=== PATIENT | female | born 1990 | race Caucasian/White ===

== ENCOUNTER 2019-10-14 14:34 | Emergency (ER) | payer OTHER ==
[~2019-10-14] VITALS: Ht 154.9 cm; Wt 81.7 kg
[~2019-10-14 14:34] MED LIST: ACYCLOVIR 200200 MG PO; BENADRYL ALLE12.5 M1 PO; CALAMINE MEDIC TP; ELOCON15 G1 TP; IBUPROFEN 800800 MG PO; K-DUR10 MEQ PO; KEFLEX500 MG PO; MEDROLDOSEPACK PO; NAPROSYN500 MG PO; NOHOMEMEDICATIONS; PHENERGAN 25 MG25 M1 PO; PHENERGAN25 M2 RC; PREDNISONE 20 M20 M1 PO; ROBAXIN 750 MG750 MG PO; ULTRAM 50MG TAB50 MG PO; ZOFRAN 4 MG ORAL4 M1 DIS
[2019-10-14 15:35] LABS: ABSOLUTE BASOPHILS 0.1 thou/uL (0.0-0.2); ABSOLUTE EOSINOPHILS 0.1 thou/uL (0.0-0.7); ABSOLUTE MONOCYTES 0.3 thou/uL (0.0-1.2); ABSOLUTE NEUTROPHILS 4.7 thou/uL (1.6-8.1); BASOPHILS 1.3 %; EOSINOPHILS 1.1 %; HEMOGLOBIN 12.5 gm/dL (12.0-15.0); LYMPHOCYTES 27.5 %; MCH 27.8 pg (26.0-34.0); MCHC 33.9 g/dL (28.0-37.0); MCV 81.9 fL (80.0-100.0); MONOCYTES 4.6 %; MPV 9.1 fl. (7.2-11.1); NUCLEATED RBCS 0 /100WBC; PLATELET COUNT* 181 thou/uL (150-400); POLYS 65.5 %; RBC 4.51 mil/uL (4.20-5.00); RDW-CV 14.8 % (10.5-14.5); WBC 7.1 thou/uL (4.0-11.0)
[2019-10-14 15:43] LABS: CALCIUM 8.7 mg/dL (8.5-10.1); CREATININE 0.9 mg/dL (0.6-1.3); POTASSIUM 4.1 mmol/L (3.5-5.1)
[2019-10-14 15:47] LABS: ALBUMIN 3.8 g/dL (3.4-5.0); TOTAL BILIRUBIN 0.2 mg/dL (<0.1-1.0); TOTAL PROTEIN 7.7 g/dL (6.4-8.2)
[2019-10-14 16:18] LABS: URINE BILIRUBIN NEGATIVE (Negative); URINE BLOOD 3+ (Negative); URINE CLARITY CLOUDY; URINE COLOR RED; URINE GLUCOSE-RANDOM NEGATIVE (Negative); URINE KETONES NEGATIVE (Negative); URINE LEUKOCYTES-REFLEX NEGATIVE (Negative); URINE NITRITE-REFLEX NEGATIVE (Negative); URINE PROTEIN TRACE (Negative); URINE UROBILINOGEN 0.2 E.U./dl (0.2-1.0)
[2019-10-14 16:21] LABS: BACTERIA-REFLEX 1-9 Few /HPF (None Seen); SQUAMOUS 0-3 Few /LPF (0-3); URINE RBC >20 Many /HPF (0-2); URINE WBC-REFLEX None Seen /HPF (0-5)
[2019-10-14 16:22] LABS: CASTS None Seen /LPF (None Seen); CRYSTALS None Seen /LPF (None Seen); MUCUS None Seen strn/LPF (None Seen)
[2019-10-14] MEDS ORDERED: ONDANSETRON HCL4 M2 PO (16:56)
[2019-10-14] MEDS ORDERED: BENTYL 20 MG TA20 M1 PO (16:56)
[2019-10-14 17:11] VITALS: BP 137/74
== END 2019-10-14 17:12 | disposition home or self-care (01) ==
LOC: M.ERS 14:34
PROVIDERS: Nurse Practitioner Family
DX: R10.32 Left lower quadrant pain (principal); R11.2 Nausea with vomiting, unspecified; E03.9 Hypothyroidism, unspecified; Z87.442 Personal history of urinary calculi; Z90.49 Acquired absence of other specified parts of digestive tract